=== PATIENT | male | born 1950 | race Two or more races ===

== ENCOUNTER 2016-09-14 19:05 | Emergency (ER) | payer BC ==
--- NOTE | 2016-09-14 20:09 | EKG REPORT ---
SEVERITY:- BORDERLINE ECG - SINUS RHYTHM BORDERLINE T WAVE ABNORMALITIES : Confirmed by: Isa Lawrence 14-Sep-2016 20:08:30
[2016-09-14] MEDS ORDERED: NORMAL SALINE 1000 ML 1,000 ML IV ONE (22:15)
[2016-09-14 22:28] LABS: ABSOLUTE BASOPHILS # (AUTO) 0.1 10^3/uL (0.0-0.2); ABSOLUTE EOSINOPHILS # (AUTO) 0.2 10^3/uL (0.0-0.6); ABSOLUTE LYMPHOCYTES (AUTO) 0.7 10^3/uL (0.5-4.7); ABSOLUTE MONOCYTES (AUTO) 0.6 10^3/uL (0.1-1.4); ABSOLUTE NEUT (AUTO) 4.9 10^3/uL (1.7-8.2); BASOPHILS % (AUTO) 0.8 % (0-2); EOSINOPHILS % (AUTO) 3.3 % (0-6); HEMATOCRIT 36.9 % (37.9-51.0); HEMOGLOBIN 12.6 g/dL (13.5-17.0); HGB HCT DIFFERENCE 0.9; LYMPHOCYTES % (AUTO) 11.5 % (13-45); MEAN CORPUSCULAR HEMOGLOBIN 30.8 pg (27.0-33.4); MEAN CORPUSCULAR HGB CONC 34.1 g/dL (32.0-36.0); MEAN CORPUSCULAR VOLUME 91 fl (80-97); MONOCYTES % (AUTO) 8.8 % (3-13); RED BLOOD COUNT 4.08 10^6/uL (4.35-5.55); RED CELL DISTRIBUTION WIDTH 14.3 % (11.5-14.0); SEGMENTED NEUTROPHILS % (AUTO) 75.6 % (42-78); WHITE BLOOD COUNT 6.5 10^3/uL (4.0-10.5)
[2016-09-14 22:31] LABS: ALANINE AMINOTRANSFERASE 31 U/L (21-72); ALBUMIN 3.9 g/dL (3.5-5.0); ALCOHOL 252 mg/dL (NONE DETECTED); ALKALINE PHOSPHATASE 67 U/L (38-126); ANION GAP 14 (5-19); ASPARTATE AMINO TRANSFERASE 28 U/L (17-59); BILIRUBIN,TOTAL 0.5 mg/dL (0.2-1.3); BLOOD UREA NITROGEN 18 mg/dL (7-20); CALCIUM 8.1 mg/dL (8.4-10.2); CARBON DIOXIDE 25 mmol/L (22-30); CHLORIDE 102 mmol/L (98-107); CREATININE RESULT 0.95 mg/dL (0.52-1.25); GLUCOSE 117 mg/dL (75-110); LIPASE 62.9 U/L (23-300); POTASSIUM 3.5 mmol/L (3.6-5.0); SODIUM 141.2 mmol/L (137-145); TOTAL PROTEIN 6.7 g/dL (6.3-8.2)
[2016-09-14 23:52] LABS: APPEARANCE,URINE CLEAR; BILIRUBIN,URINE NEGATIVE (NEGATIVE); GLUCOSE, URINE NEGATIVE (NEGATIVE); KETONES,URINE NEGATIVE (NEGATIVE); LEUKOCYTE ESTERASE,URINE NEGATIVE (NEGATIVE); NITRITE,URINE NEGATIVE (NEGATIVE); PROTEIN,URINE NEGATIVE (NEGATIVE); URINE SPECIFIC GRAVITY 1.009; UROBILINOGEN,URINE NEGATIVE mg/dL (<2.0)
[2016-09-15 00:03] LABS: URINE BARBITURATES SCREEN NEGATIVE; URINE METHADONE SCREEN NEGATIVE; URINE OPIATES LOW NEGATIVE; URINE PHENCYCLIDINE SCREEN NEGATIVE
--- NOTE | 2016-09-15 00:22 | ER Document Report ---
ED General - General Chief Complaint: Altered Mental Status Stated Complaint: ALTERED MENTAL STATUS Cannot obtain history due to: Intoxicated Notes: Patient is a 66-year-old male history of chronic alcohol abuse who presents by EMS after having decreased responsiveness at home. states that when she came home, patient was working on the yard and when he came inside he sat down on the couch. She states that he stopped talking to her and appeared confused. He was "just staring off into space". She states the then appeared to be foaming around his mouth but was not have any tonic-clonic jerking or apparent loss of consciousness. When EMS arrived they found his initial oxygen saturations were in the low 80s which normalized after providing supplemental oxygen. The patient himself is unable to provide meaningful history at the time of arrival due to severe intoxication. The states that he's had similar symptoms in the past and is drinking too much. Past Medical History - General Information source: Patient - Social History Smoking Status: Never Smoker Frequency of alcohol use: Heavy Drug Abuse: None Lives with: Spouse/Significant other Family History: Reviewed & Not Pertinent Review of Systems - Review of Systems -: Yes ROS unobtainable due to patient's medical condition Physical Exam - Vital signs Vitals: Resp BP Pulse Ox 20 109/75 98 09/14/16 19:25 09/14/16 19:25 09/14/16 19:25 Interpretation: Normal Notes: PHYSICAL EXAMINATION: GENERAL: Appears intoxicated but in no distress HEAD: Atraumatic, normocephalic. EYES: Pupils equal round and reactive to light, extraocular movements intact, sclera anicteric, conjunctiva are normal. ENT: nares patent, oropharynx clear without exudates. Moderately dry mucous membranes. NECK: Normal range of motion, supple without lymphadenopathy LUNGS: Breath sounds clear to auscultation bilaterally and equal. No wheezes rales or rhonchi. HEART: Regular rate and rhythm without murmurs ABDOMEN: Soft, nontender, normoactive bowel sounds. No guarding, no rebound. No masses appreciated. EXTREMITIES: Normal range of motion, no pitting or edema. No cyanosis. NEUROLOGICAL: Face symmetric. Tongue protrudes midline. Extraocular motions intact. Pupils are 2 mm and equally reactive. Slurred speech, mildly ataxic gait. 5 out of 5 strength in both the distal and proximal upper and lower extremities bilaterally. Sensation is grossly intact throughout. Pronator drift normal. PSYCH: Intoxicated but answers questions appropriately SKIN: Warm, Dry, normal turgor, no rashes or lesions noted. Course - Re-evaluation Re-evalutation: 09/15/16 00:18 Patient presents with altered mental status, respiratory suppression with initial pulse oximetry low 80s off oxygen. Here in the emergency department, patient is intoxicated but otherwise nontoxic in appearance. He has had oxygen levels within normal limits greater than 95% off oxygen for the past 3 hours and I suspect his initial period of hypoxemia was secondary to somnolence/ hypoventilation in the setting of severe alcohol intoxication. His head CT, chest x-ray, and laboratories are all unremarkable with the exception of an alcohol level of 252. Patient's mental status has continued to improve throughout his time in the emergency department consistent with increasing sobriety. He has no cervical tenderness and did not sustain any injury today. Based on his exam and imaging here today I do not suspect an acute pneumonia, AR , pulmonary embolus, seizure, or TIA. His neurologic exam after his sobriety was improved was normal. At this time, based on his reassuring evaluation, clinical improvement, will plan for discharge home with return precautions and follow-up recommendations. His at the bedside is sober and able to take him home. Encouraged the patient to seek help for his alcohol abuse. - Vital Signs Vital signs: Temp Pulse Resp BP Pulse Ox 14 134/85 H 95 09/15/16 00:42 09/15/16 00:42 09/15/16 00:51 - Laboratory Result Diagrams: 09/14/16 19:57 09/14/16 19:57 Laboratory results interpreted by me: 09/14/16 09/14/16 19:57 19:57 RBC 4.08 L Hgb 12.6 L Hct 36.9 L RDW 14.3 H Plt Count 86 L Lymphocytes % 11.5 L Potassium 3.5 L Glucose 117 H Calcium 8.1 L - Diagnostic Test Radiology reviewed: Image reviewed, Reports reviewed Radiology results interpreted by me: 09/15/16 00:21 chest x-ray: No acute infiltrate CT head: No intracranial bleed or mass - EKG Interpretation by Me Additional EKG results interpreted by me: 09/15/16 03:49 Normal sinus rhythm. Rate 85. No ST elevations or depressions. QTC 457. Discharge - Discharge Clinical Impression: Hypoventilation Altered mental status Qualifiers: Altered mental status type: somnolence Qualified Code(s): R40.0 - Somnolence Alcohol intoxication Qualifiers: Complication of substance-induced condition: with delirium Qualified Code(s): F10.121 - Alcohol abuse with intoxication delirium Condition: Good Disposition: HOME, SELF-CARE Additional Instructions: You were seen in the emergency department today for being drunk. Being seen in the emergency department after drinking alcohol is a serious indicator that you have a problem with alcohol. You should seek help with the attached resources for your problem drinking. Please return to the emergency room immediately if you experience any concerning symptoms including high fevers, severe headache, chest pain, difficulty breathing, abdominal pain, slurred speech, numbness or weakness in your arms or legs, or any other symptom that concerns you.
[2016-09-15 00:50] VITALS: BP 134/85
== END 2016-09-15 00:51 | disposition home or self-care (01) ==
LOC: ER 19:05
DX: R06.89 Other abnormalities of breathing (principal); R40.0 Somnolence; F10.121 Alcohol abuse with intoxication delirium; R41.82 Altered mental status, unspecified
CPT/HCPCS: 93005; 99285; 96360; 36415; 80307 ×2; 83690; 85025; 80053; 81001; 87804; 71010; 70450; 93010; J7030